=== PATIENT | female | born 1970 | race African-American/Black ===

== ENCOUNTER 2023-10-07 12:35 | Emergency (ER) | payer OTHER ==
[2023-10-07 13:32] VITALS: TEMP 98.7; BMI 32.3
[2023-10-07 13:36] VITALS: BP 178/96; PULSE 96; RESP 19
== END 2023-10-07 15:10 | disposition home or self-care (01) ==
LOC: JER 12:35
DX: I10 Essential (primary) hypertension (principal)
CPT/HCPCS: 99283-25